=== PATIENT | female | born 1970 | race African-American/Black ===

== ENCOUNTER 2022-07-03 06:55 | Emergency (ER) | payer OTHER ==
[~2022-07-03] VITALS: Ht 157.5 cm; Wt 84.1 kg
[2022-07-03 07:43] LABS: HEMATOCRIT 39.8 % (36-46); HEMOGLOBIN 13.8 g/dL (12.0-16.0); MEAN CORPUSCULAR HEMOGLOBIN 31.6 pg (26.0-34.0); MEAN CORPUSCULAR HGB CONC 34.6 G/dL (31.0-37.0); MEAN CORPUSCULAR VOLUME 91 fL (80-100); PLATELET COUNT (AUTO) 246 K/uL (150-450); RED BLOOD CELL COUNT(AUTO) 4.36 MIL/uL (4.00-5.20); RED CELL DISTRIBUTION WIDTH 12.5 % (11.5-14.5)
[2022-07-03] MEDS ORDERED: KETOROLAC TROMETHAMINE 30 MG/ML VIAL IVP ONE (07:45)
[2022-07-03] MEDS ORDERED: SODIUM CHLORIDE 0.9% 1,000 ML IV ONE (07:45)
[2022-07-03] MEDS ORDERED: HYDROmorphone HCL 2 MG/ML SYRINGE IVP ONE (07:45)
[2022-07-03] MEDS ORDERED: ONDANSETRON HCL 4 MG/2 ML VIAL IVP ONE (07:45)
[2022-07-03 07:54] LABS: ANION GAP 11 mmol/L (8-16); CARBON DIOXIDE 25 mmol/L (22-29); CHLORIDE 103 mmol/L (98-107); GLOMERULAR FILTR. RATE CALC > 60 mL/min (>60); GLUCOSE,RANDOM 95 mg/dL (70-110); POTASSIUM 3.5 mmol/L (3.5-5.1); SODIUM SERUM 139 mmol/L (136-145); UREA NITROGEN, BLOOD 8 mg/dL (7-18)
[2022-07-03 07:59] LABS: ALANINE AMINOTRANSFERASE 24 U/L (12-78); ALKALINE PHOSPHATASE 94 U/L (46-116); ASPARTATE AMINOTRANSFERASE 21 U/L (15-37); BILIRUBIN,TOTAL 0.4 mg/dL (0.1-1.0); LIPASE 99 U/L (73-393); TOTAL PROTEIN, SERUM 7.7 g/dL (6.4-8.2)
[2022-07-03 08:30] LABS: BAND NEUTROPHILS % (MANUAL) 0 % (0-5)
[2022-07-03 08:34] LABS: COVID AG,FIA SOURCE NASOPHARYNGEAL
[2022-07-03 08:35] LABS: LYMPHOCYTES % (MANUAL) 15 % (22-44); MONOCYTES % (MANUAL) 18 % (2-9); SEGMENTED NEUTROPHILS % 67 % (40-70)
[2022-07-03 09:00] LABS: INFLUENZA TYPE A NEGATIVE FOR TYPE A (NEGATIVE); INFLUENZA TYPE B NEGATIVE FOR TYPE B (NEGATIVE)
[2022-07-03] MEDS ORDERED: PROM-163 PO (09:07)
[2022-07-03] MEDS ORDERED: HYDR-4723 PO (09:07)
[2022-07-03 09:21] VITALS: BP 118/77
== END 2022-07-03 09:52 | disposition home or self-care (01) ==
LOC: EMS 06:55
DX: R07.89 Other chest pain (principal); R51.9 Headache, unspecified; F41.0 Panic disorder [episodic paroxysmal anxiety]; F17.210 Nicotine dependence, cigarettes, uncomplicated; Z90.710 Acquired absence of both cervix and uterus; Z98.51 Tubal ligation status; Z98.890 Other specified postprocedural states; Z72.820 Sleep deprivation; Z88.6 Allergy status to analgesic agent; Z20.822 Contact with and (suspected) exposure to COVID-19
CPT/HCPCS: 99285; 96374; 71045; 96375; 96361; 87426; 80053; 83690; 84484; 85025; 87804; 36415; 93005; J1170; J1885; J2405; J7030

== ENCOUNTER 2022-12-30 08:29 | Emergency (ER) | payer OTHER ==
[~2022-12-30] VITALS: Ht 162.6 cm; Wt 68.2 kg
[~2022-12-30 08:29] MED LIST: HYDR-4723 PO; PROM-223 PO
[2022-12-30 08:44] VITALS: TEMP 98.9
[2022-12-30] MEDS ORDERED: VARE1TAB28 PO (08:49)
[2022-12-30] MEDS ORDERED: ATOR20TA65 PO (08:49)
[2022-12-30] MEDS ORDERED: METH2.5T6 PO (08:49)
[2022-12-30 08:56] LABS: COVID AG,FIA SOURCE NASAL SWAB
[2022-12-30 09:19] LABS: INFLUENZA TYPE A NEGATIVE FOR TYPE A (NEGATIVE); INFLUENZA TYPE B NEGATIVE FOR TYPE B (NEGATIVE)
[2022-12-30 09:57] LABS: SARS-COV2 (COVID) ANTIGEN,FIA Positive (Negative)
[2022-12-30 10:45] VITALS: BP 112/86; PULSE 88; RESP 16
[2022-12-30] MEDS ORDERED: NIRM1TAB4 PO (10:46)
== END 2022-12-30 11:11 | disposition home or self-care (01) ==
LOC: EMS 08:33
DX: U07.1 COVID-19 (principal); E78.00 Pure hypercholesterolemia, unspecified; J18.9 Pneumonia, unspecified organism; F17.210 Nicotine dependence, cigarettes, uncomplicated; Z90.710 Acquired absence of both cervix and uterus; Z98.51 Tubal ligation status; Z88.5 Allergy status to narcotic agent; Z88.8 Allergy status to other drugs, medicaments and biological substances; Z20.822 Contact with and (suspected) exposure to COVID-19; Z98.890 Other specified postprocedural states
CPT/HCPCS: 71045; 87804; 99284

== ENCOUNTER 2023-06-01 11:42 | Emergency (ER) | payer OTHER ==
[~2023-06-01] VITALS: Ht 157.5 cm; Wt 70.5 kg
[~2023-06-01 11:42] MED LIST changes: +ATOR20TA65 PO; -HYDR-4723 PO; +METH2.5T6 PO; +NIRM1TAB4 PO; -PROM-223 PO; +VARE1TAB28 PO
[2023-06-01 11:48] VITALS: BP 139/70; PULSE 96; RESP 26; TEMP 98.4
== END 2023-06-01 19:01 | disposition left against medical advice (07) ==
LOC: EMS 11:42
DX: R07.89 Other chest pain (principal); E78.00 Pure hypercholesterolemia, unspecified; J18.9 Pneumonia, unspecified organism; F17.210 Nicotine dependence, cigarettes, uncomplicated; Z90.710 Acquired absence of both cervix and uterus; Z98.51 Tubal ligation status; Z88.5 Allergy status to narcotic agent
CPT/HCPCS: 93005; 99283

== ENCOUNTER 2023-09-20 03:52 | Emergency (ER) | payer OTHER ==
[~2023-09-20] VITALS: Ht 157.5 cm; Wt 71.0 kg
[2023-09-20 04:01] VITALS: BP 141/103; PULSE 96; RESP 20; TEMP 98
[2023-09-20] MEDS: ACETAMINOPHEN 500 MG TABLET PO ONE (04:40)
[2023-09-20] MEDS: PredniSONE 20 MG TABLET PO ONE (04:40)
[2023-09-20] MEDS: KETOROLAC TROMETHAMINE 30 MG/ML VIAL IM ONE (04:40)
[2023-09-20] MEDS ORDERED: PRED-554 PO (05:40)
[2023-09-20] MEDS ORDERED: IBUP-1492 PO (05:40)
[2023-09-20] MEDS ORDERED: ACET-3385 PO (05:40)
== END 2023-09-20 07:21 | disposition home or self-care (01) ==
LOC: EMS 03:52
DX: M25.532 Pain in left wrist (principal); E78.00 Pure hypercholesterolemia, unspecified; J18.9 Pneumonia, unspecified organism; M72.2 Plantar fascial fibromatosis; F17.210 Nicotine dependence, cigarettes, uncomplicated; Z90.710 Acquired absence of both cervix and uterus; Z98.51 Tubal ligation status; Z88.5 Allergy status to narcotic agent; Z98.890 Other specified postprocedural states
CPT/HCPCS: 99283; 73110; 29125; 96372; J1885; J7512